=== PATIENT | male | born 1940 | race Caucasian/White ===

== ENCOUNTER 2018-01-09 01:36 | Inpatient (IN) | payer MEDICARE, BC ==
[~2018-01-09] VITALS: Ht 177.8 cm; Wt 97.1 kg
[2018-01-09] MEDS ORDERED: CLOP75TA52 PO (01:52)
[2018-01-09] MEDS ORDERED: ASPI-496 PO (01:52)
[2018-01-09] MEDS ORDERED: [UNRECOGNIZED DRUG - OTHER] (01:53)
[2018-01-09 02:12] LABS: BASOPHILS # (AUTO) 0.04 x10^3/uL (0-0.1); BASOPHILS % (AUTO) 1 % (0-1); EOSINOPHILS # (AUTO) 0.06 x10^3/uL (0-0.4); EOSINOPHILS % (AUTO) 1 % (1-7); LYMPHOCYTES % (AUTO) 25 % (22-44); MD NO; MEAN CORPUSCULAR HEMOGLOBIN 30.2 pg (27.5-34.5); MEAN CORPUSCULAR HGB CONC 33.6 g/dL (33.2-36.2); MEAN CORPUSCULAR VOLUME 89.9 fL (81-97); MEAN PLATELET VOLUME 7.9 fL (7.4-10.4); MONOCYTES # (AUTO) 0.59 x10^3/uL (0.2-0.8); MONOCYTES % (AUTO) 10 % (2-9); NEUTROPHILS # (AUTO) 3.79 x10^3/uL (1.8-6.8); NEUTROPHILS % (AUTO) 63 % (42-75); PLATELET COUNT 215 x10^3/uL (130-400); RED BLOOD COUNT 4.95 x10^6/uL (4.38-5.82); RED CELL DISTRIBUTION WIDTH 13.8 % (9.4-14.8)
[2018-01-09 02:25] LABS: ALBUMIN 3.4 g/dL (3.4-5.0); ANION GAP 7 mmol/L (5-15); CALCIUM 8.2 mg/dL (8.5-10.1); CHLORIDE 109 mmol/L (98-107); CREATININE 1.16 mg/dL (0.7-1.3)
[2018-01-09 02:30] LABS: TROPONIN I 0.497 ng/mL (0.000-0.045)
[2018-01-09] MEDS ORDERED: ONDANSETRON 2MG/ML, 2ML IVPush PRN ×2 (03:00→03:30)
[2018-01-09] MEDS ORDERED: MORPHINE SULFATE 4 MG/ML, 1ML IVPush PRN (03:00)
[2018-01-09] MEDS ORDERED: GABAPENTIN 300 MG CAPSULE PO PRN (03:30)
[2018-01-09] MEDS ORDERED: OXYcodone IR 5MG TABLET PO PRN (03:30)
[2018-01-09] MEDS ORDERED: ACETAMINOPHEN 325 MG TABLET PO PRN (03:30)
[2018-01-09] MEDS ORDERED: PROMETHAZINE 25 MG/ML, 1ML IM PRN (03:30)
[2018-01-09] MEDS ORDERED: hydrALAzine 20 MG/ML, 1ML IVPush PRN (03:30)
[2018-01-09] MEDS ORDERED: DOCUSATE 100 MG CAPSULE PO PRN (03:30)
[2018-01-09] MEDS ORDERED: NITROGLYCERIN 0.4 MG BOTTLE (25 TABS) SL PRN (03:30)
[2018-01-09] MEDS ORDERED: ONDANSETRON ODT 4 MG PO PRN (03:30)
[2018-01-09] MEDS ORDERED: POLYETHYLENE GLYCOL 17 GM PACKET PO PRN (03:30)
[2018-01-09] MEDS ORDERED: LABETALOL 5MG/ML, 20ML IVPush PRN (03:30)
[2018-01-09] MEDS ORDERED: morphine SULFATE 10 MG/ML, 1ML IVPush PRN (03:30)
[2018-01-09] MEDS ORDERED: BISACODYL 10 MG SUPP PR PRN (03:30)
[2018-01-09 03:35] VITALS: BP 135/78
[2018-01-09 03:53] LABS: HEMOGLOBIN A1C 5.9 % (4.2-6.3)
[2018-01-09 03:55] LABS: FREE T4 (FREE THYROXINE) 0.83 ng/dL (0.76-1.46); THYROID STIMULATING HORMONE 2.66 mIU/L (0.358-3.740)
[2018-01-09] MEDS: SODIUM CHLORIDE 0.9% 1,000 ML IV SCH ×2 (04:30→13:05)
[2018-01-09] MEDS: HEPARIN 5,000 UNITS/ML, 1ML SQ SCH ×3 (05:19→20:48)
[2018-01-09] MEDS: ASPIRIN 325 MG TABLET EC PO SCH (05:19)
[2018-01-09] MEDS: PLAVIX MC SCH ×3 (06:00→22:00)
[2018-01-09 06:13] LABS: TROPONIN I 0.929 ng/mL (0.000-0.045)
[2018-01-09 07:10] VITALS: BP 128/83
[2018-01-09] MEDS ORDERED: CLOPIDOGREL 75 MG TABLET PO SCH (09:00)
[2018-01-09] MEDS: CLOPIDOGREL 75 MG TABLET PO SCH (09:30)
[2018-01-09] MEDS ORDERED: SODIUM CHLORIDE 0.9% 1,000 ML IV ONE (12:51)
[2018-01-09] MEDS ORDERED: TICAGRELOR 90 MG TABLET ONE (13:26)
[2018-01-09] MEDS ORDERED: HEPARIN 1,000 UNITS/ML, 10ML ONE (13:26)
[2018-01-09] MEDS ORDERED: MIDAZOLAM 1 MG/ML, 5ML ONE (13:26)
[2018-01-09] MEDS ORDERED: BIVALIRUDIN 250 MG ONE (13:26)
[2018-01-09] MEDS ORDERED: VERAPAMIL 2.5 MG/ML, 2ML ONE (13:26)
[2018-01-09] MEDS ORDERED: LIDOCAINE-MPF 1%, 5ML ONE (13:26)
[2018-01-09] MEDS ORDERED: FENTANYL PF 100 MCG/2ML ONE (13:26)
[2018-01-09] MEDS ORDERED: CLOPIDOGREL 75 MG TABLET ONE (14:15)
[2018-01-09] MEDS ORDERED: SODIUM CHLORIDE 0.9% 1,000 ML IV SCH (14:17)
[2018-01-09 14:54] VITALS: BP 119/80
[2018-01-09 20:27] VITALS: BP 133/80
[2018-01-09] MEDS ORDERED: ATORVASTATIN 40 MG TABLET PO SCH (21:00)
[2018-01-10 00:36] VITALS: BP 153/84
[2018-01-10] MEDS: HEPARIN 5,000 UNITS/ML, 1ML SQ SCH (05:02)
[2018-01-10] MEDS: ASPIRIN 325 MG TABLET EC PO SCH (05:02)
[2018-01-10 05:08] LABS: BASOPHILS # (AUTO) 0.02 x10^3/uL (0-0.1); BASOPHILS % (AUTO) 0 % (0-1); EOSINOPHILS # (AUTO) 0.14 x10^3/uL (0-0.4); EOSINOPHILS % (AUTO) 2 % (1-7); LYMPHOCYTES # (AUTO) 1.57 x10^3/uL (1-3.4); LYMPHOCYTES % (AUTO) 27 % (22-44); MD NO; MEAN CORPUSCULAR HEMOGLOBIN 31.3 pg (27.5-34.5); MEAN CORPUSCULAR HGB CONC 34.5 g/dL (33.2-36.2); MEAN CORPUSCULAR VOLUME 90.6 fL (81-97); MEAN PLATELET VOLUME 8.1 fL (7.4-10.4); MONOCYTES # (AUTO) 0.56 x10^3/uL (0.2-0.8); MONOCYTES % (AUTO) 10 % (2-9); NEUTROPHILS # (AUTO) 3.59 x10^3/uL (1.8-6.8); NEUTROPHILS % (AUTO) 61 % (42-75); PLATELET COUNT 187 x10^3/uL (130-400); RED BLOOD COUNT 4.93 x10^6/uL (4.38-5.82); RED CELL DISTRIBUTION WIDTH 13.4 % (9.4-14.8)
[2018-01-10 05:18] LABS: ALANINE AMINOTRANSFERASE 23 U/L (12-78); ALBUMIN 3.3 g/dL (3.4-5.0); ANION GAP 8 mmol/L (5-15); CALCIUM 8.2 mg/dL (8.5-10.1); CHLORIDE 110 mmol/L (98-107); CHOLESTEROL, TOTAL 182 mg/dL (140-239); CREATININE 1.06 mg/dL (0.7-1.3)
[2018-01-10 05:21] LABS: ALKALINE PHOSPHATASE 78 U/L (45-117); CHOL/HDL RATIO 5.1; HDL CHOL % 20 % (26-37); HDL CHOLESTEROL (DIRECT) 36 mg/dL (40-60); LDL CHOLESTEROL,CALCULATED 115 mg/dL (54-169); LDL/HDL RATIO 3.2 (0.5-3.0); TOTAL PROTEIN 6.8 g/dL (6.4-8.2); TRIGLYCERIDES 155 mg/dL (50-200); VLDL CHOLESTEROL 31 mg/dL (0-25)
[2018-01-10 07:08] VITALS: BP 136/89
[2018-01-10] MEDS ORDERED: ATOR40TA78 PO (09:10)
[2018-01-10] MEDS: CLOPIDOGREL 75 MG TABLET PO SCH (11:18)
== END 2018-01-10 11:52 | disposition home or self-care (01) | DRG 250 ==
LOC: ED 02:23 → EDIP 02:48 → 5SO 05:06
PROVIDERS: ADMIT Internal Medicine; ATTEND Internal Medicine
PROC: 4A023N7 Measurement of Cardiac Sampling and Pressure, Left Heart, Percutaneous Approach (ICD-10-PCS; principal; 2018-01-09)
PROC: B2111ZZ Fluoroscopy of Multiple Coronary Arteries using Low Osmolar Contrast (ICD-10-PCS; 2018-01-09)
PROC: B2151ZZ Fluoroscopy of Left Heart using Low Osmolar Contrast (ICD-10-PCS; 2018-01-09)
PROC: 02703ZZ Dilation of Coronary Artery, One Artery, Percutaneous Approach (ICD-10-PCS; 2018-01-09)
DX: T82.855A Stenosis of coronary artery stent, initial encounter (principal); I21.4 Non-ST elevation (NSTEMI) myocardial infarction; I25.110 Atherosclerotic heart disease of native coronary artery with unstable angina pectoris; I50.9 Heart failure, unspecified; E66.9 Obesity, unspecified; E78.5 Hyperlipidemia, unspecified; G89.29 Other chronic pain; I11.0 Hypertensive heart disease with heart failure; Y83.1 Surgical operation with implant of artificial internal device as the cause of abnormal reaction of the patient, or of later complication, without mention of misadventure at the time of the procedure; Z82.49 Family history of ischemic heart disease and other diseases of the circulatory system; R00.1 Bradycardia, unspecified; Z79.82 Long term (current) use of aspirin; Z79.899 Other long term (current) drug therapy; Z68.30 Body mass index [BMI] 30.0-30.9, adult
CPT/HCPCS: 36415; 80048; 80053; 80061; 82040; 83036; 83735; 84439; 84443; 84484; 85025; 90656; 92920; 93005; 93458; 99156; 99157; 99285; C1769; C1894; G0378; J0583; J1644; J2250; J3010; 92928; C1725; C1887; J7030; Q9967